=== PATIENT | male | born 1945 | race American Indian/Alaskan Native ===

== ENCOUNTER 2018-05-28 08:52 | Outpatient (CLI) | payer MEDICARE ==
--- NOTE | 2018-05-28 11:16 | XRay Report ---
ROUTINE CHEST, TWO VIEWS: HISTORY: Back pain. The trachea, heart, mediastinal contour, lung byers and bony thorax are unremarkable. Minimal degenerative disc disease is noted throughout the thoracic spine. No compression deformity is identified. IMPRESSION: Unremarkable chest x-ray.
--- NOTE | 2018-05-29 06:47 | Magnetic Resonance Report ---
PROCEDURE: MR LUMBAR SPINE WO CON TECHNIQUE: Multisequence, multi planar MR imaging is obtained through the lumbar spine without contr ast HISTORY: Dorsalgia, unspecified COMPARISONS: None FINDINGS: Lumbar lordosis and vertebral body heights are preserved. Marrow signal is within normal limits. No fracture or infiltrative process. No listhesis. The conus terminates at the L1 level. Caudae senait a is normal in caliber and signal characteristics. The para spinal soft tissues to include the image d portions of the abdomen and pelvis are without significant signal abnormality. At T12-L1 and L1-L2 there is normal disc hydration and disc height and no significant spinal canal or neural foraminal stenosis. At L2-L3 and L3-L4 there is mild disc hydration and mild loss in disc height with small circumferenti al disc bulges and mild spinal canal and neural foraminal stenosis. At L4-L5 there is disc desiccation and mild loss in disc height with a circumferential disc bulge and moderate facet arthropathy and ligamentum flavum thickening resulting in moderate spinal canal and n eural foraminal stenosis. At L5-S1 there is disc desiccation and mild loss of disc height with a small circumferential disc bul ge and moderate facet arthropathy resulting in mild spinal canal and moderate neural foraminal stenos is. IMPRESSION: Lower lumbar disc degeneration results in moderate spinal canal and neural foraminal stenosis, as det madelyn above. This document is electronically signed by Miguel Bacon MD., May 29 2018 06:45:23 AM ET
== END 2018-05-28 08:53 | disposition home or self-care (01) ==
LOC: MRI 08:52
PROVIDERS: ATTEND Internal Medicine Hematology & Oncology
DX: M48.061 Spinal stenosis, lumbar region without neurogenic claudication (principal); M51.26 Other intervertebral disc displacement, lumbar region; Z91.013 Allergy to seafood
CPT/HCPCS: 71046; 72148; 93005; 93010; 93306

== ENCOUNTER 2018-08-11 09:28 | Observation (INO) | payer MEDICARE ==
[2018-08-11] MEDS ORDERED: GENTAMICIN/NS 80 MG/100 ML 100 ML IV ONE (10:13)
[2018-08-11] MEDS ORDERED: NACL 0.9% 1000 ML 1,000 ML IV SCH (10:16)
--- NOTE | 2018-08-11 10:37 | Anesthesia Consultation ---
Anesthesia Consult and Med Hx Date of service: 08/11/18 - Airway Anesthetic Teeth Evaluation: Poor, Partials ROM Head & Neck: Adequate Mental/Hyoid Distance: Adequate Mallampati Class: Class II Intubation Access Assessment: Good - Pulmonary Exam CTA: Yes - Cardiac Exam Cardiac Exam: RRR - Pre-Operative Health Status ASA Pre-Surgery Classification: ASA2 Proposed Anesthetic Plan: General (For GA , pt with hx of DM, HTN on chronic suboxone for low back pain) - Pulmonary Hx Smoking: Yes (STARTED AGE 27; QUIT 1988) - Cardiovascular System Hx Hypertension: Yes (2013) - Central Nervous System Hx Back Pain: Yes (LOWER) Hx Psychiatric Problems: Yes - Other Systems Hx Alcohol Use: No
--- NOTE | 2018-08-11 10:37 | Anesthesia Day of Surgery ---
Anesthesia Day of Surgery - Day of Surgery Patient Examined: Yes Patient H&P Reviewed: Yes Patient is NPO: Yes
[2018-08-11] MEDS ORDERED: VANCOMYCIN/NS 1 GM/250 ML 1 GM/250 ML BAG IV NR (11:00)
[2018-08-11] MEDS ORDERED: DILAUDID ONE ×2 (11:45→15:18)
[2018-08-11] MEDS ORDERED: XYLOCAINE MPF 2% ONE (11:45)
[2018-08-11] MEDS ORDERED: DIPRIVAN 10 MG/ML IV ONE (11:45)
[2018-08-11] MEDS ORDERED: NACL P/F VIAL (10 ML) 20 ML ONE (12:39)
[2018-08-11] MEDS ORDERED: NEOSPORIN GU IR ONE ×2 (12:39→13:20)
[2018-08-11] MEDS ORDERED: MARCAINE 0.5% INFILTRATI ONE ×2 (13:20→13:27)
[2018-08-11] MEDS ORDERED: NACL 0.9% IR ONE (13:20)
[2018-08-11] MEDS ORDERED: NACL P/F VIAL (10 ML) INFILTRATI ONE (13:20)
[2018-08-11] MEDS ORDERED: WATER FOR IRRIG STERILE IR ONE (13:20)
[2018-08-11] MEDS ORDERED: NACL P/F VIAL (10 ML) 10 ML ONE (13:28)
[2018-08-11] MEDS ORDERED: ZOFRAN ONE (14:30)
[2018-08-11] MEDS ORDERED: NARCAN 0.4 MG/1 ML IV PRN (14:36)
[2018-08-11] MEDS ORDERED: PERCOCET 5/325 PO PRN (14:36)
--- NOTE | 2018-08-11 14:36 | Short Stay Summary ---
Short Stay Documentation Date of service: 08/11/18 - History H&P: obtained from office - Allergies and Medications Current Medications: Allergies shellfish derived Allergy (Severe, Verified 08/11/18 10:15) Anaphylaxis ALL SEAFOOD fish derived Allergy (Verified 08/11/18 11:31) Swelling Home Medications Medication Instructions Recorded Confirmed Last Taken Type Aspirin EC 81 mg PO QDAY 08/10/18 08/10/18 07/09/18 History Lisinopril [Zestril] 20 mg PO QDAY 08/10/18 08/11/18 08/10/18 History amLODIPine [Norvasc] 10 mg PO DAILY 08/10/18 08/11/18 08/11/18 02:00 History glipiZIDE [Glucotrol] 5 mg PO BID 08/10/18 08/11/18 08/10/18 History metFORMIN [Glucophage] 500 mg PO BID 08/10/18 08/11/18 08/10/18 22:00 History Buprenorphine HCl/Naloxone HCl 1 each SL BID 08/11/18 08/11/18 08/10/18 History [Buprenorphin-Naloxon 8-2 mg Sl] Active Medications Vancomycin HCl (Vancomycin/Ns 1 Gm/250 Ml) 1 gm in 250 mls @ 166.667 mls/hr IV PREOP NR; Protocol Stop: 08/11/18 15:00 Last Admin: 08/11/18 11:37 Dose: 166.667 mls/hr Documented by: Sodium Chloride (Nacl 0.9% 1000 Ml) 1,000 mls @ 100 mls/hr IV DIRECT BERNICE Stop: 08/11/18 23:59 Last Admin: 08/11/18 10:55 Dose: 100 mls/hr Documented by: - Brief post op/procedure progress note Date of procedure: 08/11/18 Pre-op diagnosis: ed Post-op diagnosis: same Procedure: ipp (21+2cm), injection pharma agent Anesthesia: GETA Surgeon: ALEXANDRIA RIOS Estimated blood loss: minimal Condition: stable - Hospital course Hospital course: pt has bactrim/ pt gets pain meds from pain mgmt [facility] REMOVED HOME - Disposition Condition at discharge: Stable Disposition: [id number] TO HOME OR SELFCARE Short Stay Discharge Plan Follow up with: JALEESA SANDOVAL DO [Primary Care Provider] - 7 Days ALEXANDRIA RIOS MD [Staff Physician] - 7 Days
[2018-08-11] MEDS ORDERED: D50W (25GM) Syringe IV PRN (14:41)
[2018-08-11] MEDS ORDERED: ZOFRAN IV PRN (15:13)
[2018-08-11] MEDS ORDERED: DILAUDID IV PRN (15:13)
--- NOTE | 2018-08-11 15:18 | Operative Report ---
PREOPERATIVE DIAGNOSIS: Organic impotence. POSTOPERATIVE DIAGNOSIS: Organic impotence. PROCEDURE: Insertion of inflatable penile prosthesis (21 cm CX device with 2 cm rear tip health program director) intracorporal penile injection of pharmacologic agent. SURGEON: Celestine Brooks MD OIL HOUSE ATTENDANT: Lisa Magaña. ANESTHESIA: General. ESTIMATED BLOOD LOSS: Minimal. FLUIDS: Crystalloid. COMPLICATIONS: No complications. INDICATIONS: This patient is a 72-year-old gentleman seen in the office with a history of erectile dysfunction secondary to diabetes. He has tried pills, vacuum erection device with no response. He wants to proceed with surgical intervention. Risks, benefits, and complications were explained. He was cleared by Dr. Ledezma. DESCRIPTION OF PROCEDURE: The patient was taken to the operative suite, placed in a supine position. After adequate general anesthesia, he was prepped and draped in a sterile fashion. Griffith catheter was placed on the operative field. The patient was present at the bedside to assist with surgical dissection. A 0.25% Marcaine was injected into the corporal body, total of 50 mL. Minimal curvature, no plaque could be appreciated. Transscrotal incision was made with the Bovie. Sharp dissection was taken down to the corporal bodies. A 2-0 Vicryl stay sutures were placed. Corporotomies were made without difficulty. Measurements revealed a total of 23 cm length bilaterally; therefore, a 21 cm AMS CX device with a 2 cm rear tip extenders. A 100 mL reservoir was prepped and placed in the retropubic space via the right external ring. Minimal back pressure could be appreciated. The cylinders were prepped and placed into the corporal bodies with the aid of a Francis needle. Corporotomies were closed with 2-0 Vicryl in a running fashion. Insufflation of the device revealed an adequate erection deflated it, tried to reinflate again and there was a valve malfunction of the device. Multiple attempts to deflate and inflate were unsuccessful and therefore, we removed that device and placed a new CX AMS ([employer]) device was replaced without difficulty, cycled well, no problems. The pump was connected to the reservoir with the quick connection system. The pump was secured in the dependent portion of the scrotum with a 2-0 Vicryl pursestring. Dartos layer was closed with 2-0 Vicryl in a running fashion. Skin was closed with 3-0 Vicryl in an interrupted fashion. Mummy wrap was placed. The patient tolerated the procedure well and was extubated and taken to recovery room. He will be observed overnight. The patient has his antibiotics. Also, of note, he sees Dr. Keene, who is pain management for his medications. JOB# [id number] [facility]
--- NOTE | 2018-08-11 17:28 | Post Anesthesia Evaluation ---
- Post Anesthesia Evaluation Patient Participated: Yes Airway Patent: Yes Stable Respiratory Function: Yes Nausea/Vomiting: No Temp > 96.8F: Yes Pain Manageable: Yes Adequeate Hydration: Yes Anesthesia Complications: No Block Receding Appropriately: Not Applicable Patient on Ventilator: No
[2018-08-11] MEDS: ANCEF/NS 1 GM/50 ML 1 GM/50 ML BAG IV SCH ×2 (17:49→23:03)
[2018-08-11] MEDS: MORPHINE IV PRN (17:51)
[2018-08-11] MEDS: NACL 0.45% 1000 ML 1,000 ML IV SCH (17:57)
--- NOTE | 2018-08-11 19:13 | Consultation ---
History of Present Illness - Reason for Consult Consult date: 08/11/18 Medical Management Requesting physician: ALEXANDRIA BROOKS - History of Present Illness 72 YO Male with HTN, DM admitted for elective urologic procedure. Consult placed by Dr. Brooks for medical management. Pt seen and evaluated upon arrival to his room. Pt denies fever, chills, CP, Palpitations, NVD, Productive cough, or shortness of breath. Pt pain is controlled. Pt denies complaints. No reported nursing events. Past History Past Medical History: diabetes, hypertension Past Surgical History: Other (urology) Social history: , lives with family Family history: diabetes, hypertension Medications and Allergies Allergies Allergy/AdvReac Type Severity Reaction Status Date / Time shellfish derived Allergy Severe Anaphylaxis Verified 08/11/18 10:15 fish derived Allergy Swelling Verified 08/11/18 11:31 Home Medications Medication Instructions Recorded Confirmed Last Taken Type Aspirin EC 81 mg PO QDAY 08/10/18 08/10/18 07/09/18 History Lisinopril [Zestril] 20 mg PO QDAY 08/10/18 08/11/18 08/10/18 History amLODIPine [Norvasc] 10 mg PO DAILY 08/10/18 08/11/18 08/11/18 02:00 History glipiZIDE [Glucotrol] 5 mg PO BID 08/10/18 08/11/18 08/10/18 History metFORMIN [Glucophage] 500 mg PO BID 08/10/18 08/11/18 08/10/18 22:00 History Buprenorphine HCl/Naloxone HCl 1 each SL BID 08/11/18 08/11/18 08/10/18 History [Buprenorphin-Naloxon 8-2 mg Sl] Active Meds: Active Medications Amlodipine Besylate (Norvasc) 10 mg PO DAILY [facility]ERN[facility] Dextrose (D50w (25gm) Syringe) 50 ml IV PRN PRN PRN Reason: Hypoglycemia Glipizide (Glucotrol) 5 mg PO BID [facility]ERN[facility] Hydromorphone HCl (Dilaudid) 0.5 mg IV Q10MIN PRN PRN Reason: Pain , Severe (7-10) Last Admin: 08/11/18 15:20 Dose: 0.5 mg Documented by: Sodium Chloride (Nacl 0.9% 1000 Ml) 1,000 mls @ 100 mls/hr IV DIRECT BERNICE Stop: 08/11/18 23:59 Last Admin: 08/11/18 10:55 Dose: 100 mls/hr Documented by: Sodium Chloride (Nacl 0.45% 1000 Ml) 1,000 mls @ 100 mls/hr IV DIRECT BERNICE Last Admin: 08/11/18 17:57 Dose: 100 mls/hr Documented by: Cefazolin Sodium (Ancef/Ns 1 Gm/50 Ml) 1 gm in 50 mls @ 100 mls/hr IV Q8H BERNICE; Protocol Stop: 08/11/18 23:29 Insulin Human Regular (Humulin R) 0 units SUB-Q ACHS BERNICE; Protocol Lisinopril (Zestril) 20 mg PO QDAY [facility] Metformin HCl (Glucophage) 500 mg PO BID [facility] Miscellaneous Medication (Buprenorphine Hcl/Naloxone Hcl [Buprenorphin-Naloxon 8-2 Mg Sl]) 1 each SL BID [facility] Morphine Sulfate (Morphine) 4 mg IV Q4H PRN PRN Reason: Pain , Severe (7-10) Last Admin: 08/11/18 17:51 Dose: 4 mg Documented by: Naloxone HCl (Narcan 0.4 Mg/1 Ml) 0.1 mg IV Q2MIN PRN PRN Reason: Res Rate </= 8 or 02 SAT < 92% Ondansetron HCl (Zofran) 4 mg IV ONCE PRN PRN Reason: Nausea And Vomiting Oxycodone/Acetaminophen (Percocet 5/325) 1 tab PO Q6H PRN PRN Reason: Pain, Moderate (4-6) Review of Systems Constitutional: no weight loss, no weight gain, no fever, no sweats Ears, nose, mouth and throat: no ear pain, no ear discharge, no decreased hearing, no nose pain, no nasal congestion, no nasal discharge Cardiovascular: no chest pain, no orthopnea, no palpitations, no rapid/irregular heart beat, no edema, no syncope, no lightheadedness Respiratory: no cough, no cough with sputum, no excessive sputum, no hemoptysis, no shortness of breath Gastrointestinal: no abdominal pain, no nausea, no diarrhea, no change in bowel habits Genitourinary Male: no dysuria, no hematuria, no urinary frequency, no urinary hesitancy, no incontinence Rectal: no pain, no incontinence, no bleeding Musculoskeletal: no neck stiffness, no shooting arm pain, no low back pain, no shooting leg pain, no leg numbness/tingling Integumentary: no rash, no pruritis, no redness, no sores, no wounds, no jaundice Neurological: no head injury, no paralysis, no weakness, no parathesias, no numbness, no tingling, no seizures, no syncope Psychiatric: no anxiety, no memory loss, no change in sleep habits, no sleep disturbances, no insomnia, no hypersomnia, no suicidal ideation Endocrine: no cold intolerance, no heat intolerance, no polyphagia, no excessive thirst, no nocturia, no excessive sweating Hematologic/Lymphatic: no easy bruising, no easy bleeding, no lymphadenopathy, no lymphedema Allergic/Immunologic: no urticaria, no allergic rhinitis, no wheezing, no persistent infections, no anaphylaxis, no angioedema Exam - Constitutional Vitals: Temp Pulse Resp BP Pulse Ox 98.5 F 90 16 150/75 2 L 08/11/18 16:30 08/11/18 16:30 08/11/18 16:30 08/11/18 16:30 08/11/18 16:30 General appearance: Present: no acute distress, well-nourished - EENT Eyes: Present: PERRL ENT: hearing intact, clear oral mucosa - Neck Neck: Present: supple, normal ROM - Respiratory Respiratory effort: normal Respiratory: bilateral: CTA - Cardiovascular Heart Sounds: Present: S1 & S2. Absent: rub, click - Extremities Extremities: pulses symmetrical, No edema Peripheral Pulses: within normal limits - Abdominal General gastrointestinal: Present: soft, non-tender, non-distended, normal bowel sounds Male genitourinary: Present: normal - Integumentary Integumentary: Present: clear, warm, dry - Musculoskeletal Musculoskeletal: gait normal, strength equal bilaterally - Psychiatric Psychiatric: appropriate mood/affect, intact judgment & insight - Neurologic Neurologic: CNII-XII intact, moves all extremities Results - Labs CBC & Chem 7: 08/12/18 05:24 Labs: Abnormal lab results 08/11/18 08/11/18 Range/Units 11:05 14:58 POC Glucose 126 H 114 H (70-105) Assessment and Plan - Patient Problems (1) HTN (hypertension) Current Visit: Yes Status: Acute Qualifiers: Hypertension type: essential hypertension Qualified Code(s): I10 - Essential (primary) hypertension Plan to address problem: Monitor BP q shift, continue medical management, IV hydralazine prn (2) Diabetes Current Visit: Yes Status: Acute Plan to address problem: ADA diet, insulin, accu check
[2018-08-11] MEDS ORDERED: APRESOLINE IV PRN (19:15)
[2018-08-11] MEDS ORDERED: GLUCOPHAGE PO SCH (22:00)
[2018-08-11] MEDS ORDERED: SUBOXONE 2 MG-0.5 MG SL SCH (22:00)
[2018-08-11] MEDS ORDERED: BUPRENORPHINE HCL SL SCH (22:00)
[2018-08-11] MEDS ORDERED: GLUCOTROL PO SCH (22:00)
[2018-08-11] MEDS ORDERED: NALOXONE HCL SL SCH (22:00)
[2018-08-11] MEDS: HumuLIN R SUB-Q SCH (22:45)
[2018-08-12] MEDS: MORPHINE IV PRN (02:48)
[2018-08-12] MEDS: NACL 0.45% 1000 ML 1,000 ML IV SCH (05:15)
[2018-08-12 06:57] LABS: Basophils % (Auto) 0.2 % (0.0-1.8); Eosinophils # (Auto) 0.1 K/mm3 (0.0-0.4); Eosinophils % (Auto) 1.7 % (0.0-4.3); Hematocrit 39.3 % (35.5-45.6); Hemoglobin 12.7 gm/dl (11.8-15.2); Mean Corpuscular HGB Conc 32 % (32-34); Mean Corpuscular Volume 78 fl (84-94); Monocytes # (Auto) 1.1 K/mm3 (0.0-0.8); Monocytes % (Auto) 14.7 % (0.0-7.3); Platelet Count 195 K/mm3 (140-440); Red Blood Count 5.06 M/mm3 (3.65-5.03); Red Cell Distribution Width 15.2 % (13.2-15.2)
[2018-08-12 07:27] LABS: BUN/Creatinine Ratio 9; Blood Urea Nitrogen 7 mg/dL (9-20); Calcium 8.5 mg/dL (8.4-10.2); Hemolysis Index 25
--- NOTE | 2018-08-12 08:26 | Progress Note ---
Assessment and Plan c/o back pain chronic wrap removed wong out needs oob no edema or eccymosis Subjective Date of service: 08/12/18 Principal diagnosis: ED Objective - Constitutional Vitals: Vital Signs - 12hr 08/11/18 08/12/18 08/12/18 23:58 02:11 02:48 Temperature 99.1 F Pulse Rate 75 Respiratory 18 20 18 Rate Blood Pressure 129/68 O2 Sat by Pulse 97 Oximetry 08/12/18 03:59 Temperature 98.7 F Pulse Rate 74 Respiratory 19 Rate Blood Pressure 133/65 O2 Sat by Pulse 97 Oximetry General appearance: Present: no acute distress - Neck Neck: supple - Respiratory Respiratory effort: normal Extremities: no ischemia - Gastrointestinal General gastrointestinal: Present: soft - Labs CBC & Chem 7: 08/12/18 05:24 08/12/18 05:24 Labs: Abnormal lab results 08/11/18 08/11/18 08/11/18 Range/Units 11:05 14:58 23:19 RBC (3.65-5.03) M/mm3 MCV (84-94) fl MCH (28-32) pg Lymph % (Auto) (13.4-35.0) % [place] % (Auto) (0.0-7.3) % Lymph # (1.2-5.4) K/mm3 [place] # (0.0-0.8) K/mm3 Seg Neutrophils % (40.0-70.0) % BUN (9-20) mg/dL Glucose (75-100) mg/dL POC Glucose 126 H 114 H 108 H (70-105) 08/12/18 08/12/18 08/12/18 Range/Units 05:24 05:24 08:24 RBC 5.06 H (3.65-5.03) M/mm3 MCV 78 L (84-94) fl MCH 25 L (28-32) pg Lymph % (Auto) 13.0 L (13.4-35.0) % [place] % (Auto) 14.7 H (0.0-7.3) % Lymph # 1.0 L (1.2-5.4) K/mm3 [place] # 1.1 H (0.0-0.8) K/mm3 Seg Neutrophils % 70.4 H (40.0-70.0) % BUN 7 L (9-20) mg/dL Glucose 110 H (75-100) mg/dL POC Glucose 134 H (70-105) Medications & Allergies - Medications Allergies/Adverse Reactions: Allergies shellfish derived Allergy (Severe, Verified 08/11/18 10:15) Anaphylaxis ALL SEAFOOD fish derived Allergy (Verified 08/11/18 11:31) Swelling Home Medications: Home Medications Medication Instructions Recorded Confirmed Last Taken Type Aspirin EC 81 mg PO QDAY 08/10/18 08/10/18 07/09/18 History Lisinopril [Zestril] 20 mg PO QDAY 08/10/18 08/11/18 08/10/18 History amLODIPine [Norvasc] 10 mg PO DAILY 08/10/18 08/11/18 08/11/18 02:00 History glipiZIDE [Glucotrol] 5 mg PO BID 08/10/18 08/11/18 08/10/18 History metFORMIN [Glucophage] 500 mg PO BID 08/10/18 08/11/18 08/10/18 22:00 History Buprenorphine HCl/Naloxone HCl 1 each SL BID 08/11/18 08/11/18 08/10/18 History [Buprenorphin-Naloxon 8-2 mg Sl] Active Medications: Generic Name Dose Route Start Last Admin Trade Name Freq PRN Reason Stop Dose Admin Amlodipine Besylate 10 mg 08/12/18 10:00 Norvasc PO DAILY BERNICE Buprenorphine HCl 4 each 08/11/18 22:00 08/11/18 23:03 Suboxone 2 Mg-0.5 Mg SL 4 each BID BERNICE Administration Dextrose 50 ml 08/11/18 14:41 D50w (25gm) Syringe IV PRN PRN Hypoglycemia Hydralazine HCl 10 mg 08/11/18 19:15 Apresoline IV Q8HR PRN Hypertension Hydromorphone HCl 0.5 mg 08/11/18 15:13 08/11/18 15:20 Dilaudid IV 0.5 mg Q10MIN PRN Administration Pain , Severe (7-10) Sodium Chloride 1,000 mls @ 100 mls/hr 08/11/18 15:00 08/12/18 05:15 Nacl 0.45% 1000 Ml IV 100 mls/hr DIRECT BERNICE Administration Insulin Human Regular 0 units 08/11/18 16:30 08/11/18 22:45 Humulin R SUB-Q Not Given ACHS BERNICE Protocol Lisinopril 20 mg 08/12/18 10:00 Zestril PO QDAY [facility] Morphine Sulfate 4 mg 08/11/18 14:36 08/12/18 02:48 Morphine IV 4 mg Q4H PRN Administration Pain , Severe (7-10) Naloxone HCl 0.1 mg 08/11/18 14:36 Narcan 0.4 Mg/1 Ml IV Q2MIN PRN Res Rate </= 8 or 02 SAT < 92% Ondansetron HCl 4 mg 08/11/18 15:13 Zofran IV ONCE PRN Nausea And Vomiting Oxycodone/Acetaminophen 1 tab 08/11/18 14:36 Percocet 5/325 PO Q6H PRN Pain, Moderate (4-6)
--- NOTE | 2018-08-12 08:28 | Discharge Summary ---
Short Stay Discharge Plan Activity: other (no sex no straining ) Weight Bearing Status: Full Weight Bearing Diet: low fat, low cholesterol, low salt Wound: open to air Special Instructions: other (ice packs today ) Follow up with: JALEESA SANDOVAL DO [Primary Care Provider] - 7 Days ALEXANDRIA RIOS MD [Staff Physician] - 7 Days
[2018-08-12 09:21] VITALS: BP 153/72
[2018-08-12] MEDS: HumuLIN R SUB-Q SCH (09:36)
[2018-08-12] MEDS ORDERED: NORVASC PO SCH (10:00)
[2018-08-12] MEDS ORDERED: ZESTRIL PO SCH (10:00)
--- NOTE | 2018-08-12 13:39 | Progress Note ---
Assessment and Plan Assessment and plan: 72 YO Male with HTN, DM admitted for elective urologic procedure. Consult placed by Dr. Brooks for medical management. Pt seen and evaluated upon arrival to his room. Pt denies fever, chills, CP, Palpitations, NVD, Productive cough, or shortness of breath. Pt pain is controlled. Pt denies complaints. No reported nursing events. (1) HTN (hypertension) Well controlled. (2) Diabetes Cont ADA diet. Accu check STABLE FOR DISCHARGE FROM MEDICINE STANDPOINT History Interval history: Patient seen and examined, sitting comfortable at bedside, no new complaints Hospitalist Physical - Physical exam Narrative exam: VITAL SIGNS: Reviewed. GENERAL: The patient appeared well nourished and normally developed, Vital signs as documented. Sitting up at bedside HEAD: No signs of head trauma. EYES: Pupils are equal. Extraocular motions intact. EARS: Hearing grossly intact. MOUTH: Oropharynx is normal. NECK: No adenopathy, no JVD. CHEST: Chest with clear breath sounds bilaterally. No wheezes, rales, or rhonchi. CARDIAC: Regular rate and rhythm. S1 and S2, without murmurs, gallops, or rubs. VASCULAR: No Edema. Peripheral pulses normal and equal in all extremities. ABDOMEN: Soft, non tender and non distended. No rebound or guarding, and no masses palpated. Bowel Sounds normal. MUSCULOSKELETAL: Good range of motion of all major joints. Extremities without clubbing, cyanosis or edema. NEUROLOGIC EXAM: Alert and oriented x 3 No focal sensory or strength deficits. Speech normal. Follows commands. PSYCHIATRIC: Mood normal. SKIN: No rash or lesions. - Constitutional Vitals: Temp Pulse Resp BP Pulse Ox 98.7 F 84 18 153/72 99 08/12/18 08:06 08/12/18 09:39 08/12/18 10:38 08/12/18 09:39 08/12/18 08:06 General appearance: Present: no acute distress Results - Labs CBC & Chem 7: 08/12/18 05:24 08/12/18 05:24 Labs: Laboratory Last Values WBC 7.5 K/mm3 (4.5-11.0) 08/12/18 05:24 RBC 5.06 M/mm3 (3.65-5.03) H 08/12/18 05:24 Hgb 12.7 gm/dl (11.8-15.2) 08/12/18 05:24 Hct 39.3 % (35.5-45.6) 08/12/18 05:24 MCV 78 fl (84-94) L 08/12/18 05:24 MCH 25 pg (28-32) L 08/12/18 05:24 MCHC 32 % (32-34) 08/12/18 05:24 RDW 15.2 % (13.2-15.2) 08/12/18 05:24 Plt Count 195 K/mm3 (140-440) 08/12/18 05:24 Lymph % (Auto) 13.0 % (13.4-35.0) L 08/12/18 05:24 [place] % (Auto) 14.7 % (0.0-7.3) H 08/12/18 05:24 Eos % (Auto) 1.7 % (0.0-4.3) 08/12/18 05:24 Baso % (Auto) 0.2 % (0.0-1.8) 08/12/18 05:24 Lymph # 1.0 K/mm3 (1.2-5.4) L 08/12/18 05:24 [place] # 1.1 K/mm3 (0.0-0.8) H 08/12/18 05:24 Eos # 0.1 K/mm3 (0.0-0.4) 08/12/18 05:24 Baso # 0.0 K/mm3 (0.0-0.1) 08/12/18 05:24 Seg Neutrophils % 70.4 % (40.0-70.0) H 08/12/18 05:24 Seg Neutrophils # 5.3 K/mm3 (1.8-7.7) 08/12/18 05:24 Sodium 137 mmol/L (137-145) 08/12/18 05:24 Potassium 4.4 mmol/L (3.6-5.0) 08/12/18 05:24 Chloride 98.0 mmol/L (98-107) 08/12/18 05:24 Carbon Dioxide 22 mmol/L (22-30) 08/12/18 05:24 21 mmol/L 08/12/18 05:24 BUN 7 mg/dL (9-20) L 08/12/18 05:24 0.8 mg/dL (0.8-1.5) 08/12/18 05:24 Estimated GFR > 60 ml/min 08/12/18 05:24 9 % 08/12/18 05:24 Glucose 110 mg/dL (75-100) H 08/12/18 05:24 POC Glucose 161 (70-105) H 08/12/18 11:53 Calcium 8.5 mg/dL (8.4-10.2) 08/12/18 05:24
== END 2018-08-12 13:30 | disposition home or self-care (01) ==
LOC: OR 09:28 → 3B-SURG 14:36
PROVIDERS: ADMIT Urology; ATTEND Urology
DX: N52.01 Erectile dysfunction due to arterial insufficiency (principal); M54.9 Dorsalgia, unspecified; G89.29 Other chronic pain; Z91.013 Allergy to seafood; E11.9 Type 2 diabetes mellitus without complications; I10 Essential (primary) hypertension; Z71.3 Dietary counseling and surveillance
CPT/HCPCS: 36415; 54401; 80048; 82962; 85025; 96365; 96366; 96367; 96375; 96376; C1813; G0378; J0690; J1170; J1580; J2270; J2405; J2704; J3246; J3370; J7030

== ENCOUNTER 2020-12-26 14:12 | Outpatient (CLI) | payer MEDICARE ==
--- NOTE | 2020-12-26 17:54 | Electrocardiograph Report ---
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
== END 2020-12-26 14:13 | disposition home or self-care (01) ==
LOC: CARD 14:12
PROVIDERS: ATTEND Internal Medicine Hematology & Oncology
DX: I45.10 Unspecified right bundle-branch block (principal)
CPT/HCPCS: 93005

== ENCOUNTER 2021-01-16 08:27 | Outpatient (CLI) | payer MEDICARE ==
--- NOTE | 2021-01-16 15:06 | Ultrasound Report ---
ULTRASOUND ABDOMEN, COMPLETE INDICATION: K82.9. Acute generalized abdominal pain COMPARISON: No relevant prior imaging study available. FINDINGS: Pancreas: No significant abnormality. Abdominal Aorta: Normal size. IVC: No significant abnormality. Liver: The liver measures 16.8 cm in length. No significant abnormality. Normal hepatopedal blood fl ow in the main portal vein. Gallbladder: Mostly contracted therefore poorly evaluated. Bile ducts: No significant abnormality. Common bile duct measures 6 mm. Kidneys: Right: 11.9 cm in length. No significant abnormality. Left: 12.9 cm in length. Nonobstru ctive nephrolithiasis measuring up to 7 mm in the midpole. Spleen: No significant abnormality. Free fluid: None. Additional Findings: None. IMPRESSION: 1. Borderline hepatomegaly. Otherwise unremarkable liver. 2. Contracted gallbladder. 3. Nonobstructive nephrolithiasis in the left kidney. Signer Name: Bj Mckeon MD Signed: 01/16/2021 3:00 PM Workstation Name: [id number]
== END 2021-01-16 08:28 | disposition home or self-care (01) ==
LOC: US 08:27
PROVIDERS: ATTEND Internal Medicine Hematology & Oncology
DX: K82.9 Disease of gallbladder, unspecified (principal)
CPT/HCPCS: 76700